=== PATIENT | female | born 1975 | race Caucasian/White ===

== ENCOUNTER 2017-11-02 10:00 | Outpatient (RCR) | payer BC | END 2017-11-23 10:24 | disposition home or self-care (01) | LOC: WSPT 10:00 | DX: M54.41 Lumbago with sciatica, right side (principal) ==

== ENCOUNTER → 2020-01-16 | Outpatient (CLI) | payer BC | LOC: MC.RAD 12:56 | DX: Z12.31 Encounter for screening mammogram for malignant neoplasm of breast (principal) ==

== ENCOUNTER → 2023-03-16 | Outpatient (CLI) | payer OTHER | LOC: MC.RAD 09:14 | DX: Z12.31 Encounter for screening mammogram for malignant neoplasm of breast (principal) ==